=== PATIENT | male | born 2000 | race Two or more races ===

== ENCOUNTER 2022-06-01 15:16 | Emergency (ER) | payer BC ==
[~2022-06-01] VITALS: Ht 182.9 cm; Wt 90.7 kg
[2022-06-01 15:37] VITALS: BP 149/88
--- NOTE | 2022-06-01 17:57 | NUR ---
Patient discharged to home in stable condition. Written and verbal after care instructions given. Patient verbalizes understanding of instruction.
== END 2022-06-01 17:57 | disposition home or self-care (01) ==
LOC: ER 15:27
DX: S00.03XA Contusion of scalp, initial encounter (principal); W22.8XXA Striking against or struck by other objects, initial encounter; Y93.89 Activity, other specified; Y92.89 Other specified places as the place of occurrence of the external cause; Y99.8 Other external cause status